=== PATIENT | male | born 2000 | race Asian ===

== ENCOUNTER 2022-04-05 22:31 | Emergency (ER) | payer OTHER ==
[~2022-04-05] VITALS: Ht 177.8 cm; Wt 63.5 kg
[2022-04-05 22:37] VITALS: BP_SYST 119
[2022-04-05 23:14] VITALS: BP_SYST 107
--- NOTE | 2022-04-05 23:37 | NUR ---
pt c/o ring stuck on his finger. knuckle swollen; ring cutter used to take ring off; no other orders needed. pt left facility ambulatory independently; agreed to f/u with pcp. vss
== END 2022-04-05 23:16 | disposition home or self-care (01) ==
LOC: SED 22:31
DX: S60.444A External constriction of right ring finger, initial encounter (principal); Z79.899 Other long term (current) drug therapy; W49.04XA Ring or other jewelry causing external constriction, initial encounter; Y93.89 Activity, other specified; Y92.89 Other specified places as the place of occurrence of the external cause; Y99.8 Other external cause status
CPT/HCPCS: 99284